=== PATIENT | female | born 1945 | race Two or more races ===

== ENCOUNTER 2024-07-12 18:08 | Inpatient (IN) | payer OTHER, MEDICARE ==
[~2024-07-12] VITALS: Ht 165.1 cm; Wt 117.5 kg
[2024-07-12 18:18] VITALS: O2SAT 94
[2024-07-12 19:06] LABS: BASOPHILS % 0.2 % (0.0-2.0); EOSINOPHILS % 0.1 % (0.0-5.0); HEMATOCRIT. 48.6 % (36.0-48.0); HEMOGLOBIN. 15.8 g/dL (12.0-16.0); LYMPHOCYTES % 9.4 % (20.0-50.0); MEAN CORPUSCULAR HGB CONC 32.5 g/dL (31.0-37.0); MEAN CORPUSCULAR VOLUME 89.4 fL (81.0-99.0); MEAN PLATELET VOLUME 11.1 fl (7.4-10.4); MONOCYTES % 8.6 % (2.0-8.0); NEUTROPHILS % 81.7 % (40.0-76.0); PLATELET 199 x1000/uL (130-400); RED BLOOD CELL COUNT 5.44 mill/uL (4.2-5.4); RED CELL DISTRIBUTION WIDTH 16.2 % (11.6-14.6); WHITE BLOOD COUNT 18.8 x1000/uL (4.5-11.0)
[2024-07-12 19:15] LABS: CARBON DIOXIDE 28 mEq/L (21-32); CHLORIDE 109 mEq/L (98-107); POTASSIUM 3.8 mEq/L (3.5-5.1); SODIUM 146 mEq/L (136-145)
[2024-07-12 19:16] LABS: CALCIUM 8.6 mg/dL (8.7-10.4)
[2024-07-12 19:17] LABS: PROTHROMBIN TIME 11.2 sec (9.6-11.0)
[2024-07-12 19:20] LABS: CREATININE 1.3 mg/dL (0.6-1.0); GLUCOSE 114 mg/dL (70-105)
[2024-07-12 19:21] LABS: AMMONIA < 17 uMol/L (<32); ETHANOL BLOOD < 10 mg/dL (<10); UREA NITROGEN BLOOD 58 mg/dL (9-23)
[2024-07-12 19:22] LABS: ACETAMINOPHEN < 2 ug/mL (10-30); ALANINE AMINOTRANSFERASE 86 IU/L (10-49); ALBUMIN 3.9 g/dL (3.2-4.8); ASPARTATE AMINOTRANSFERASE 130 IU/L (<34)
[2024-07-12 19:23] LABS: BILIRUBIN DIRECT 0.7 mg/dL (<=3.0); BILIRUBIN TOTAL 2.2 mg/dL (0.1-1.0); CREATINE KINASE > 1300 IU/L (34-145); PROTEIN TOTAL 6.8 g/dL (6.0-8.3)
[2024-07-12 19:25] LABS: THYROID STIMULATING HORMONE 2.14 uIU/mL (0.55-4.78)
[2024-07-12 19:29] LABS: TROPONIN I HIGH SENSITIVITY 988 ng/L (3.0-34)
[2024-07-12 19:30] LABS: LACTIC ACID 2.6 mmol/L (0.4-2.0)
[2024-07-12] MEDS: SODIUM CHLORIDE 0.9% (SEPSIS BOLUS) IV ONE (19:47)
[2024-07-12] MEDS: PIPERACILLIN/TAZO 3.375G/50ML 50 ML IV ONE (19:59)
[2024-07-12] MEDS: VANCOMYCIN 1G PREMIX 200 ML IV ONE (21:40)
[2024-07-12] MEDS: MORPHINE SULFATE 4 MG/ML INJ (FOR IV/IM USE) IV ONE (21:52)
[2024-07-12] MEDS ORDERED: ZOLPIDEM TARTRATE 5MG TABLET PO PRN (22:45)
[2024-07-12] MEDS ORDERED: MORPHINE SULFATE 2 MG/ML INJ (NOT FOR IM USE) IV PRN (22:45)
[2024-07-12] MEDS ORDERED: HYDROCODONE/ACETAMINOPHEN 5/325MG TABLET PO PRN (22:45)
[2024-07-12] MEDS ORDERED: CEFTRIAXONE 1GM/50ML 50 ML IV SCH (22:45)
[2024-07-12] MEDS ORDERED: ONDANSETRON HCL 4MG/2ML INJ IV PRN (22:45)
[2024-07-12] MEDS ORDERED: IPRATROPIUM/ALBUTEROL 0.5-3(2.5)MG/3ML NEB NEB PRN (22:45)
[2024-07-12] MEDS ORDERED: NALOXONE HCL 0.4MG/ML VIAL IV PRN (23:00)
[2024-07-12] MEDS ORDERED: IOHEXOL-350 100 ML BOTTLE ONE (23:07)
[2024-07-12 23:20] LABS: TROPONIN I HIGH SENSITIVITY 787 ng/L (3.0-34)
[2024-07-12 23:48] LABS: CLARITY URINE TURBID (CLEAR); COLOR URINE DARK YELLOW (YELLOW); GLUCOSE URINE NEGATIVE (NEGATIVE); KETONES URINE TRACE (NEGATIVE); LEUKOCYTE ESTERASE URINE 3+ (NEGATIVE); NITRITE URINE POSITIVE (NEGATIVE); OCCULT BLOOD URINE 2+ (NEGATIVE); PROTEIN URINE 1+ (NEGATIVE)
[2024-07-12 23:58] LABS: *AMPHETAMINES SCREEN URINE NEGATIVE (NEGATIVE); *BARBITURATES SCREEN URINE NEGATIVE (NEGATIVE); *BENZODIAZEPINES SCREEN URINE NEGATIVE (NEGATIVE); *COCAINE SCREEN URINE NEGATIVE (NEGATIVE); CANNABINOID URINE SCREEN PRESUMPTIVE POSITIVE (NEGATIVE); ECSTASY MDMA SCREEN URINE NEGATIVE (NEGATIVE); METHADONE URINE SCREEN NEGATIVE (NEGATIVE); OPIATES URINE SCREEN PRESUMPTIVE POSITIVE (NEGATIVE); PHENCYCLIDINE URINE SCREEN NEGATIVE (NEGATIVE)
[2024-07-13 00:07] LABS: BACTERIA URINE 3+; SQUAMOUS EPITHELIAL CELL URINE 2+ /lpf (RARE/1+); WBC URINE 50-100 /hpf (0-2)
[2024-07-13] MEDS ORDERED: ATEN-42 MT (00:16)
[2024-07-13] MEDS ORDERED: SEMA0.258 (00:18)
[2024-07-13] MEDS ORDERED: GABA-529 PO (00:20)
[2024-07-13] MEDS ORDERED: OMEP20CA14 PO (00:21)
[2024-07-13] MEDS: ENOXAPARIN 40MG/0.4ML SYR SUBCUT SCH (02:11)
[2024-07-13] MEDS: SODIUM CHLORIDE 0.9% 1,000 ML IV SCH (02:12)
[2024-07-13] MEDS: CEFTRIAXONE 1GM/50ML 50 ML IV SCH (02:12)
[2024-07-13 02:20] VITALS: BP 133/56; PULSE 109; RESP 18; TEMP 36.9
[2024-07-13] MEDS ORDERED: PNEUMOCOCCAL 20-VAL CONJ-DIP CRM 0.5ML IM ONE (03:45)
[2024-07-13 06:21] LABS: BASOPHILS % 0.1 % (0.0-2.0); DIFFERENTIAL COMMENT 0; EOSINOPHILS % 0.1 % (0.0-5.0); HEMATOCRIT. 42.8 % (36.0-48.0); LYMPHOCYTES % 11.6 % (20.0-50.0); MEAN CORPUSCULAR HEMOGLOBIN 29.1 pg (28.0-32.0); MEAN CORPUSCULAR HGB CONC 32.6 g/dL (31.0-37.0); MEAN CORPUSCULAR VOLUME 89.2 fL (81.0-99.0); MEAN PLATELET VOLUME 10.8 fl (7.4-10.4); MONOCYTES % 10.2 % (2.0-8.0); PLATELET 141 x1000/uL (130-400); WHITE BLOOD COUNT 14.4 x1000/uL (4.5-11.0)
[2024-07-13 06:26] LABS: POTASSIUM 3.2 mEq/L (3.5-5.1)
[2024-07-13 06:28] LABS: CALCIUM 7.6 mg/dL (8.7-10.4)
[2024-07-13 08:00] VITALS: BP 107/43; PULSE 100; RESP 19; TEMP 37.6; O2SAT 97
[2024-07-13] MEDS: PANTOPRAZOLE SODIUM 40 MG/VIAL IV SCH (08:33)
[2024-07-13] MEDS: POTASSIUM CHLORIDE 20MEQ TABLET SR PO SCH (10:06)
[2024-07-13 12:00] VITALS: BP 103/51; PULSE 99; RESP 19; TEMP 38; O2SAT 100
[2024-07-13] MEDS: ACETAMINOPHEN 325MG TABLET PO PRN (12:37)
[2024-07-13] MEDS ORDERED: POTASSIUM CHLORIDE 20MEQ TABLET SR PO ONE (13:15)
[2024-07-13 15:57] LABS: TROPONIN I HIGH SENSITIVITY 380 ng/L (3.0-34)
[2024-07-13 16:00] VITALS: BP 116/49; PULSE 100; RESP 19; O2SAT 97
[2024-07-13] MEDS ORDERED: AMLO5TAB88 PO (16:44)
[2024-07-13] MEDS ORDERED: ATOR40TA70 PO (16:44)
[2024-07-13] MEDS ORDERED: LISI20TA31 PO (16:44)
[2024-07-13] MEDS ORDERED: OMEP20TA23 PO (16:44)
[2024-07-13 17:05] VITALS: TEMP 37
[2024-07-13 20:00] VITALS: BP 114/41; PULSE 88; RESP 18; TEMP 36.5; O2SAT 97
[2024-07-14] MEDS ORDERED: ATENOLOL 25MG TABLET PO SCH (09:00)
== END 2024-07-13 22:02 | disposition short-term general hospital (02) | DRG 871 ==
LOC: ER 18:08 → 8WST 21:15 → EDBEDREQ 21:37 → ENRESERV 22:26
PROVIDERS: ADMIT Internal Medicine; ATTEND Internal Medicine
DX: A41.9 Sepsis, unspecified organism (principal); I21.4 Non-ST elevation (NSTEMI) myocardial infarction; Z68.41 Body mass index [BMI] 40.0-44.9, adult; M62.82 Rhabdomyolysis; N17.9 Acute kidney failure, unspecified; I10 Essential (primary) hypertension; I48.91 Unspecified atrial fibrillation; R62.7 Adult failure to thrive; I25.10 Atherosclerotic heart disease of native coronary artery without angina pectoris; I71.43 Infrarenal abdominal aortic aneurysm, without rupture; E78.5 Hyperlipidemia, unspecified; Z87.891 Personal history of nicotine dependence; Z79.899 Other long term (current) drug therapy; Z90.49 Acquired absence of other specified parts of digestive tract
CPT/HCPCS: 36415; 71045; 72170; 73562; 74174; 74176; 76700; 80048; 80076; 80305; 80307; 80320; 80329; 81003; 82140; 82550; 83605; 83880; 84145; 84443; 84484; 85025; 87077; 87186; 93005; 93970; 97162; 97530; 99291; A4606; J0696; J1650; J2270; J2470; J2543; J3370; J7030; Q9967; G0480